=== PATIENT | male | born 2005 | race Caucasian/White ===

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

== ENCOUNTER 2025-08-31 14:54 | Emergency (ER) | payer OTHER ==
[~2025-08-31] VITALS: Ht 182.9 cm; Wt 105.0 kg
[~2025-08-31 14:54] MED LIST changes: +AMOXICILLIN500 MG PO
[2025-08-31] MEDS ORDERED: LIDOCAINE/RACEPINEP/TETRACAINE 3 ML SYR TOP ONE (15:15)
[2025-08-31 16:01] VITALS: BP 125/79
== END 2025-08-31 16:02 | disposition home or self-care (01) ==
LOC: ED 14:54
DX: S81.012A Laceration without foreign body, left knee, initial encounter (principal); W26.9XXA Contact with unspecified sharp object(s), initial encounter; F17.200 Nicotine dependence, unspecified, uncomplicated
CPT/HCPCS: 12005; 99282